=== PATIENT | female | born 1975 | race Native Hawaiian/Other Pacific Islander ===

== ENCOUNTER 2018-01-29 15:54 | Emergency (ER) | payer BC ==
[~2018-01-29] VITALS: Ht 154.9 cm; Wt 52.6 kg
[2018-01-29 16:06] VITALS: TEMP 98.4
[2018-01-29 16:40] LABS: PLATELET COUNT 302 K/uL (152-353)
[2018-01-29 16:56] LABS: POTASSIUM 3.3 mmol/L (3.6-5.2); SODIUM 138 mmol/L (136-145)
[2018-01-29 17:36] VITALS: BP 112/65
== END 2018-01-29 17:37 | disposition home or self-care (01) ==
LOC: ED 15:54
DX: E03.9 Hypothyroidism, unspecified (principal); E87.6 Hypokalemia
CPT/HCPCS: 36415; 80053; 81000; 82550; 82553; 84443; 84484; 85027; 93005; 99283

== ENCOUNTER 2018-02-12 09:11 | Outpatient (CLI) | payer BC | END 2018-02-12 19:43 | disposition home or self-care (01) | LOC: MAMMO 09:11 | DX: Z12.31 Encounter for screening mammogram for malignant neoplasm of breast (principal) ==

== ENCOUNTER 2019-02-18 09:12 | Outpatient (CLI) | payer BC | END 2019-02-18 19:19 | disposition home or self-care (01) | LOC: MAMMO 09:12 | DX: Z12.31 Encounter for screening mammogram for malignant neoplasm of breast (principal) ==

== ENCOUNTER 2020-10-21 13:58 | Outpatient (CLI) | payer BC | END 2020-10-21 23:40 | disposition home or self-care (01) | LOC: MAMMO 13:58 | PROVIDERS: ATTEND Obstetrics & Gynecology | DX: N63.10 Unspecified lump in the right breast, unspecified quadrant (principal); N64.59 Other signs and symptoms in breast | CPT/HCPCS: G0279 ==

== ENCOUNTER 2021-04-27 15:42 | Outpatient (CLI) | payer BC | END 2021-04-27 19:32 | disposition home or self-care (01) | LOC: US 15:42 | PROVIDERS: ATTEND Obstetrics & Gynecology | DX: R92.2 Inconclusive mammogram (principal) ==

== ENCOUNTER 2022-04-25 15:05 | Outpatient (CLI) | payer BC | END 2022-04-25 19:07 | disposition home or self-care (01) | LOC: MAMMO 15:05 | PROVIDERS: ATTEND Obstetrics & Gynecology | DX: R92.2 Inconclusive mammogram (principal) | CPT/HCPCS: G0279 ==